=== PATIENT | male | born 1975 | race Caucasian/White ===

== ENCOUNTER 2016-09-26 10:47 | Emergency (ER) | payer BC ==
[~2016-09-26] VITALS: Ht 187.9 cm; Wt 88.5 kg
[~2016-09-26 10:47] MED LIST: AFRIN15 ML NS; AMOXICILLIN500 MG PO; ANAPROX DS550 MG PO; CEPACOL SORE T1 EAC1 MM; CIPRO250 MG PO; CLARITIN10 MG PO; DARVOCET N 1001 TAB PO; DAYPRO600 M1 PO; DICLOFENAC POTA50 MG PO; FLEXERIL10 MG PO; FLEXERIL5 MG PO; HYDROCODONE BIT1 T11 PO; IBU600 MG PO; KEFLEX500 MG PO; MEDROL DOSEPAK4 MG PO; MOTRIN800 MG PO; NAPROSYN500 MG PO; NKHM; OMNICEF300 MG PO; PERCOCET 325 MG1 TA2 PO; PERCOCET 325 MG1 TA7 PO; PREDNISONE10 MG PO; PREDNISONE50 MG PO; PRILOSEC20 MG PO; ROBAXIN500 MG PO; ROBITUSSIN-AC480 ML PO; SUDAFED60 MG PO; TRAMADOL HCL50 MG PO; ULTRAM50 MG PO; VICODIN 5/500 505 MG PO; VICODIN 500 MG-1 TAB PO; VICODIN ES 7501 TAB PO; ZANTAC 7575 M1 PO; ZITHROMAX100 MG/51 PO; ZOFRAN ODT4 MG SL; ZYRTEC10 MG PO
[2016-09-26 10:50] VITALS: BP 138/54
== END 2016-09-26 12:18 | disposition home or self-care (01) ==
LOC: ED 10:47
DX: S62.606A Fracture of unspecified phalanx of right little finger, initial encounter for closed fracture (principal); F17.200 Nicotine dependence, unspecified, uncomplicated; Z90.49 Acquired absence of other specified parts of digestive tract; W50.0XXA Accidental hit or strike by another person, initial encounter; Y93.71 Activity, boxing; Y92.9 Unspecified place or not applicable; Y99.8 Other external cause status

== ENCOUNTER 2017-01-01 14:37 | Emergency (ER) | payer BC ==
[~2017-01-01] VITALS: Ht 190.5 cm; Wt 89.4 kg
[2017-01-01 14:56] VITALS: BP 127/75
[2017-01-01] MEDS ORDERED: CYCLOBENZAPRINE5 M3 PO (17:45)
[2017-01-01] MEDS ORDERED: MEDROL DOSEPAK4 MG PO (17:45)
[2017-01-01] MEDS ORDERED: NAPROSYN500 MG PO (17:45)
== END 2017-01-01 17:51 | disposition home or self-care (01) ==
LOC: ED 14:37
DX: S39.012A Strain of muscle, fascia and tendon of lower back, initial encounter (principal); F17.200 Nicotine dependence, unspecified, uncomplicated; Z90.49 Acquired absence of other specified parts of digestive tract; W01.0XXA Fall on same level from slipping, tripping and stumbling without subsequent striking against object, initial encounter; Y93.89 Activity, other specified; Y92.9 Unspecified place or not applicable; Y99.9 Unspecified external cause status

== ENCOUNTER 2017-07-24 13:54 | Emergency (ER) | payer OTHER ==
[~2017-07-24] VITALS: Wt 86.2 kg
[~2017-07-24 13:54] MED LIST changes: +CYCLOBENZAPRINE5 M3 PO
[2017-07-24 14:06] VITALS: BP 136/69
[2017-07-24] MEDS ORDERED: FLUOXETINE HCL10 MG PO (14:06)
[2017-07-24] MEDS ORDERED: FLUOXETINE HYDR20 M1 PO (14:06)
[2017-07-24] MEDS ORDERED: Motrin,Rufen800 MG PO (16:30)
== END 2017-07-24 16:38 | disposition home or self-care (01) ==
LOC: ED 13:54
DX: S61.214A Laceration without foreign body of right ring finger without damage to nail, initial encounter (principal); F17.200 Nicotine dependence, unspecified, uncomplicated; Z90.49 Acquired absence of other specified parts of digestive tract; Z79.899 Other long term (current) drug therapy; W22.8XXA Striking against or struck by other objects, initial encounter; Y93.89 Activity, other specified; Y92.89 Other specified places as the place of occurrence of the external cause; Y99.9 Unspecified external cause status

== ENCOUNTER 2018-01-26 06:10 | Emergency (ER) | payer SELFPAY ==
[~2018-01-26] VITALS: Ht 187.9 cm; Wt 87.5 kg
[~2018-01-26 06:10] MED LIST changes: +FLUOXETINE HCL10 MG PO; +FLUOXETINE HYDR20 M1 PO; +Motrin,Rufen800 MG PO
[2018-01-26 06:16] VITALS: BP 121/65
[2018-01-26] MEDS ORDERED: CYCLOBENZAPRINE10 MG PO (06:25)
== END 2018-01-26 06:41 | disposition home or self-care (01) ==
LOC: ED 06:10
DX: D17.9 Benign lipomatous neoplasm, unspecified (principal); Z90.49 Acquired absence of other specified parts of digestive tract

== ENCOUNTER 2018-02-03 06:53 | Emergency (ER) | payer SELFPAY ==
[~2018-02-03] VITALS: Ht 187.9 cm; Wt 86.2 kg
[2018-02-03 06:53] VITALS: BP 128/53
[~2018-02-03 06:53] MED LIST changes: +CYCLOBENZAPRINE10 MG PO
== END 2018-02-03 09:25 | disposition home or self-care (01) ==
LOC: ED 06:53
DX: D17.1 Benign lipomatous neoplasm of skin and subcutaneous tissue of trunk (principal); F17.200 Nicotine dependence, unspecified, uncomplicated

== ENCOUNTER 2020-11-06 09:44 | Emergency (ER) | payer OTHER ==
[~2020-11-06] VITALS: Wt 81.6 kg
[2020-11-06 09:48] VITALS: BP 138/83
[2020-11-06] MEDS ORDERED: Motrin,Rufen800 MG PO (11:27)
== END 2020-11-06 11:35 | disposition home or self-care (01) ==
LOC: ED 09:44
DX: S89.91XA Unspecified injury of right lower leg, initial encounter (principal); Z90.49 Acquired absence of other specified parts of digestive tract; Z98.890 Other specified postprocedural states; X58.XXXA Exposure to other specified factors, initial encounter; Y93.89 Activity, other specified; Y92.89 Other specified places as the place of occurrence of the external cause; Y99.8 Other external cause status

== ENCOUNTER → 2020-12-05 | Outpatient (CLI) | payer OTHER | END | disposition home or self-care (01) | LOC: CARD 09:36 | PROVIDERS: ATTEND Preventive Medicine Occupational Medicine | DX: Z01.818 Encounter for other preprocedural examination (principal) ==

== ENCOUNTER → 2023-10-18 | Outpatient (CLI) | payer OTHER | END | disposition home or self-care (01) | LOC: MRI 02:16 | PROVIDERS: ATTEND Family Medicine | DX: M75.102 Unspecified rotator cuff tear or rupture of left shoulder, not specified as traumatic (principal); M75.52 Bursitis of left shoulder; M25.812 Other specified joint disorders, left shoulder; M12.812 Other specific arthropathies, not elsewhere classified, left shoulder ==

== ENCOUNTER 2024-01-24 06:22 | Emergency (ER) | payer OTHER ==
[~2024-01-24] VITALS: Ht 182.8 cm; Wt 72.6 kg
[2024-01-24 06:44] VITALS: BP 110/63
[2024-01-24] MEDS ORDERED: Ketorolac Tromethamine 30 MG/ML VIAL IM ONE (06:55)
[2024-01-24] MEDS ORDERED: Doxycycline Hyclate 100 MG CAP PO ONE (06:55)
[2024-01-24 07:10] LABS: BASO % 0.6 % (0.0-1.0); EOS # 0.1 10*3/uL (0.0-0.4); HEMATOCRIT 38.5 % (42.0-52.0); LYMPH # 1.4 10*3/uL (1.3-4.4); LYMPH % 22.1 % (27.0-41.0); MEAN CORPUSCULAR HGB 29.9 pg (27.0-31.0); MEAN CORPUSCULAR HGB CONC 33.2 g/dl (33.0-37.0); MEAN PLATELET VOLUME 10.1 fl (9.6-12.3); MONO # 0.5 10*3/uL (0.1-1.0); MONO % 7.9 % (3.0-9.0); NEUT # 4.3 10*3/uL (2.3-7.9); NEUT % 67.2 % (47.0-73.0); PLATELET COUNT AUTOMATED 264 10*3/uL (130-400); RED BLOOD COUNT 4.28 10*6/uL (4.50-5.90); WHITE BLOOD COUNT 6.4 10*3/uL (4.8-10.8)
[2024-01-24 07:32] LABS: ALKALINE PHOSPHATASE 64 U/L (46-116); BUN 9 mg/dl (9-23); CHLORIDE 108 mmol/L (98-107); POTASSIUM 3.9 mmol/L (3.4-5.1); SGPT/ALT 16 U/L (5-49); TOTAL PROTEIN 6.8 gm/dL (6.0-8.0)
[2024-01-24] MEDS ORDERED: VIBRAMYCIN100 MG PO (07:51)
== END 2024-01-24 08:10 | disposition home or self-care (01) ==
LOC: ED 06:22
PROVIDERS: Internal Medicine
DX: M79.10 Myalgia, unspecified site (principal); R11.2 Nausea with vomiting, unspecified; F41.9 Anxiety disorder, unspecified; K21.9 Gastro-esophageal reflux disease without esophagitis; Z90.49 Acquired absence of other specified parts of digestive tract; Z90.89 Acquired absence of other organs; Z98.890 Other specified postprocedural states

== ENCOUNTER 2024-05-31 06:50 | Emergency (ER) | payer OTHER ==
[~2024-05-31] VITALS: Ht 187.9 cm; Wt 72.6 kg
[~2024-05-31 06:50] MED LIST changes: +VIBRAMYCIN100 MG PO
[2024-05-31 07:06] VITALS: BP 123/62
[2024-05-31] MEDS ORDERED: SODIUM CHLORIDE 0.9% 1,000 ML IV ONE (07:15)
[2024-05-31] MEDS ORDERED: Ketorolac Tromethamine 15 MG/ML VIAL IV ONE (07:15)
[2024-05-31 07:26] LABS: BASO # 0.1 10*3/uL (0.0-0.1); BASO % 0.6 % (0.0-1.0); EOS # 0.2 10*3/uL (0.0-0.4); EOS % 2.6 % (1.0-4.0); HEMATOCRIT 41.7 % (42.0-52.0); MEAN CELL VOLUME 89.3 fl (80.0-94.0); MEAN CORPUSCULAR HGB 29.3 pg (27.0-31.0); MEAN CORPUSCULAR HGB CONC 32.9 g/dl (33.0-37.0); MONO # 0.5 10*3/uL (0.1-1.0); MONO % 6.6 % (3.0-9.0); NEUT # 5.5 10*3/uL (2.3-7.9); NEUT % 68.5 % (47.0-73.0); PLATELET COUNT AUTOMATED 272 10*3/uL (130-400); RED BLOOD COUNT 4.67 10*6/uL (4.50-5.90); WHITE BLOOD COUNT 8.1 10*3/uL (4.8-10.8)
[2024-05-31 07:45] LABS: BUN 10 mg/dl (9-23); CHLORIDE 105 mmol/L (98-107); CPK 141 U/L (34-171); POTASSIUM 4.1 mmol/L (3.4-5.1)
[2024-05-31] MEDS ORDERED: KETOROLAC10 MG PO (08:01)
[2024-05-31] MEDS ORDERED: VIBRAMYCIN100 MG PO (08:01)
== END 2024-05-31 08:42 | disposition home or self-care (01) ==
LOC: ED 06:50
PROVIDERS: Emergency Medicine
DX: M25.50 Pain in unspecified joint (principal); M79.18 Myalgia, other site; F17.200 Nicotine dependence, unspecified, uncomplicated; Z90.49 Acquired absence of other specified parts of digestive tract; Z90.89 Acquired absence of other organs

== ENCOUNTER 2025-01-01 05:46 | Emergency (ER) | payer OTHER ==
[~2025-01-01] VITALS: Ht 187.9 cm; Wt 74.8 kg
[~2025-01-01 05:46] MED LIST changes: +KETOROLAC10 MG PO
[2025-01-01 06:01] VITALS: BP 110/63
[2025-01-01] MEDS ORDERED: SODIUM CHLORIDE 0.9% 1,000 ML IV ONE (06:05)
[2025-01-01] MEDS ORDERED: Ondansetron Hydrochloride 4 MG/2 ML VIAL IV ONE (06:05)
[2025-01-01 06:19] LABS: BASO # 0.1 10*3/uL (0.0-0.1); BASO % 0.7 % (0.0-1.0); EOS # 0.1 10*3/uL (0.0-0.4); EOS % 2.0 % (1.0-4.0); MEAN CELL VOLUME 86.6 fl (80.0-94.0); MEAN CORPUSCULAR HGB 29.4 pg (27.0-31.0); MEAN PLATELET VOLUME 10.0 fl (9.6-12.3); MONO # 0.7 10*3/uL (0.1-1.0); MONO % 9.5 % (3.0-9.0); NEUT # 4.1 10*3/uL (2.3-7.9); NEUT % 59.4 % (47.0-73.0); NUCLEATED RED BLOOD CELL 0.0 % (0.0-0.0); NUCLEATED RED BLOOD CELL 0.0 10*3/uL (0.0-0.0); PLATELET COUNT AUTOMATED 303 10*3/uL (130-400); RED CELL DISTRI WIDTH 13.1 % (0-14.5)
[2025-01-01 06:38] LABS: BUN 14 mg/dl (9-23)
== END 2025-01-01 06:54 | disposition home or self-care (01) ==
LOC: ED 05:46
PROVIDERS: Internal Medicine
DX: T67.5XXA Heat exhaustion, unspecified, initial encounter (principal); Z79.899 Other long term (current) drug therapy; X58.XXXA Exposure to other specified factors, initial encounter; Y93.89 Activity, other specified; Y92.89 Other specified places as the place of occurrence of the external cause; Y99.8 Other external cause status

== ENCOUNTER 2025-01-21 22:05 | Emergency (ER) | payer OTHER ==
[~2025-01-21] VITALS: Ht 187.9 cm; Wt 74.8 kg
[2025-01-21 22:13] VITALS: BP 134/75
[2025-01-21] MEDS ORDERED: Ondansetron Hydrochloride 4 MG TAB SL ONE (23:05)
[2025-01-21] MEDS ORDERED: Acetaminophen/Hydrocodone 5 MG/325 MG TABLET PO ONE (23:05)
== END 2025-01-21 23:11 | disposition home or self-care (01) ==
LOC: ED 22:05
DX: G89.29 Other chronic pain (principal); M79.632 Pain in left forearm; R22.31 Localized swelling, mass and lump, right upper limb; Z79.899 Other long term (current) drug therapy; Z90.49 Acquired absence of other specified parts of digestive tract; Z90.89 Acquired absence of other organs

== ENCOUNTER → 2025-01-22 | Outpatient (CLI) | payer OTHER | END | disposition home or self-care (01) | LOC: RESCLI 14:00 | PROVIDERS: ATTEND Student in an Organized Health Care Education/Training Program | DX: M79.89 Other specified soft tissue disorders (principal); Z12.11 Encounter for screening for malignant neoplasm of colon; Z13.1 Encounter for screening for diabetes mellitus; Z13.220 Encounter for screening for lipoid disorders; Z12.5 Encounter for screening for malignant neoplasm of prostate; Z79.899 Other long term (current) drug therapy; Z82.49 Family history of ischemic heart disease and other diseases of the circulatory system ==

== ENCOUNTER → 2025-01-23 | Outpatient (CLI) | payer OTHER ==
[2025-01-23 08:35] LABS: LDL CHOLESTEROL 86 mg/dL (9-159)
== END | disposition home or self-care (01) ==
LOC: LAB 07:34 → US 07:34
PROVIDERS: Student in an Organized Health Care Education/Training Program; ATTEND Internal Medicine
DX: I82.612 Acute embolism and thrombosis of superficial veins of left upper extremity (principal); M79.89 Other specified soft tissue disorders; Z13.1 Encounter for screening for diabetes mellitus; Z13.220 Encounter for screening for lipoid disorders; Z12.5 Encounter for screening for malignant neoplasm of prostate

== ENCOUNTER 2025-05-13 18:52 | Emergency (ER) | payer OTHER ==
[~2025-05-13] VITALS: Ht 182.8 cm; Wt 72.6 kg
[2025-05-13 19:11] VITALS: BP 120/80
[2025-05-13] MEDS ORDERED: Ondansetron Hydrochloride 4 MG TAB SL ONE (19:20)
[2025-05-13] MEDS ORDERED: Acetaminophen/Hydrocodone 5 MG/325 MG TABLET PO ONE (19:20)
== END 2025-05-13 19:50 | disposition home or self-care (01) ==
LOC: ED 18:52
DX: G89.29 Other chronic pain (principal); M79.622 Pain in left upper arm; F41.9 Anxiety disorder, unspecified; K21.9 Gastro-esophageal reflux disease without esophagitis; Z90.49 Acquired absence of other specified parts of digestive tract; Z90.89 Acquired absence of other organs